=== PATIENT | female | born 1965 ===

== ENCOUNTER 2025-02-07 05:47 | Day surgery (SDC) | payer OTHER ==
[2025-02-04 13:57] VITALS: BMI 29.2
[2025-02-07] MEDS: ceFAZolin SODIUM 1 GM VIAL IVPB ONE
[2025-02-07] MEDS: LIDOCAINE HCL 1%, 10 MG/ML (50 mL VIAL) INF ONE
[2025-02-07] MEDS ORDERED: ONDANSETRON 4 MG/2 ML VIAL ONE (07:45)
[2025-02-07] MEDS ORDERED: LIDOCAINE HCL/PF 2% SDV 5ML VIAL ONE (07:45)
[2025-02-07] MEDS ORDERED: METOCLOPRAMIDE HCL INJECTION 10 MG/2 ML VIAL ONE (07:45)
[2025-02-07] MEDS ORDERED: DEXAMETHASONE SOD PHOSPHATE 4 MG/1 ML VIAL ONE (07:45)
[2025-02-07] MEDS ORDERED: MIDAZOLAM HCL 2 MG/2 ML SINGLE DOSE VIAL ONE (07:49)
[2025-02-07] MEDS ORDERED: PROPOFOL 20 ML ONE ×2 (07:50→09:44)
[2025-02-07] MEDS ORDERED: BUPIVACAINE HCL/PF 0.5% (5MG/ML) 10 ML VIAL ONE (08:15)
[2025-02-07] MEDS ORDERED: LIDOCAINE HCL 1%, 10 MG/ML (20ML VIAL) ONE (08:15)
[2025-02-07] MEDS ORDERED: DEXAMETHASONE SOD PHOSPHATE 10 MG/1 ML VIAL ONE (08:47)
[2025-02-07] MEDS ORDERED: ACETAMINOPHEN INJECTION 100 ML ONE (09:07)
[2025-02-07] MEDS: CLINDAMYCIN 600 MG PREMIX BAG IVPB ONE (09:10)
[2025-02-07] MEDS ORDERED: CLINDAMYCIN PHOSPHATE 600 MG/4 ML VIAL ONE (09:14)
[2025-02-07] MEDS: BUPIVACAINE HCL/PF 0.5% (5 MG/ML) 30 ML VIAL IJ ONE ×2 (09:20)
[2025-02-07] MEDS: LIDOCAINE HCL 2% (50ML VIAL) INF ONE ×2 (09:20)
[2025-02-07] MEDS: BACITRACIN ZINC 15 GM TUBE TOPICAL OINTMENT TP ONE (09:50)
[2025-02-07] MEDS ORDERED: KETOROLAC TROMETHAMINE 30 MG/1 ML VIAL ONE (10:05)
[2025-02-07 12:40] VITALS: TEMP 98
[2025-02-07 13:47] VITALS: BP 116/66; PULSE 74; RESP 18
== END 2025-02-07 14:25 | disposition home or self-care (01) ==
LOC: JASU-SURG 05:47
PROVIDERS: ATTEND Student in an Organized Health Care Education/Training Program
PROC: 0QBR0ZZ Excision of Left Toe Phalanx, Open Approach (ICD-10-PCS; principal; 2025-02-07 09:00)
DX: M20.22 Hallux rigidus, left foot (principal); M13.872 Other specified arthritis, left ankle and foot; M77.52 Other enthesopathy of left foot and ankle
CPT/HCPCS: 73630-TC-LT; 86850; 86900; 86901; 94760; 97116-GP; J0131; J1100